=== PATIENT | female | born 1980 | race Caucasian/White ===

== ENCOUNTER 2024-05-24 04:14 | Emergency (ER) | payer BC, MEDICAID, MEDICARE ==
[2024-05-24 04:38] VITALS: O2SAT 99
--- NOTE | 2024-05-24 04:58 | ED Physician Documentation ---
PD HPI HEADACHE - Stated complaint Stated Complaint: HEADACHE/HIGH BP - Chief complaint Chief Complaint: Neuro - History obtained from History obtained from: Patient, Family (mother) - History of Present Illness Timing - onset: Enter time (299), Today Timing - onset during: Rest Timing - duration: Hours Timing - details: Abrupt onset, Still present Location: Front, Right Quality: Throbbing Associated symptoms: Nausea, Weakness (general). No: Fever, Stiff neck, Vomiting, Numbness, Syncope, Seizure, Eye pain, Vision changes Improved by: Rest, Quiet Worsened by: Light, Moving Contributing factors: Anticoagulated, Recent illness (PE and DVT 2 wk ago). No: Trauma Similar symptoms before: Diagnosis ([place] sinus) Recently seen: Emergency Dept, Admitted - Additional information Additional information: Joanna Rocha is a 44-year-old female who two weeks as ago developed pain in her left calf and when she went to be evaluated she was found to have pulmonary embolism and deep venous thrombosis. She was treated at [facility] and released. She apparently had elevated heart rate and was subsequently admitted to [facility] overnight. She is on Eliquis and has a history of Louie-Danlos syndrome. Review of Systems Constitutional: denies: Fever Eyes: denies: Decreased vision Ears: denies: Ear pain Nose: denies: Rhinorrhea / runny nose, Congestion, Foreign Body Throat: denies: Dental pain / toothache Cardiac: denies: Chest pain / pressure Respiratory: denies: Dyspnea, Cough GI: reports: Nausea. denies: Abdominal Pain, Vomiting, Constipation, Diarrhea : denies: Dysuria Skin: denies: Rash Musculoskeletal: denies: Neck pain, Back pain, Extremity pain PD PAST MEDICAL HISTORY - Past Medical History Past Medical History: Yes Cardiovascular: Deep vein thrombosis, Pulmonary embolism Other Past Medical History: Louie-Danlos Syndrome - Past Surgical History Past Surgical History: Yes - Present Medications Home Medications: Ambulatory Orders Medication Instructions Recorded Confirmed Duloxetine HCl [Cymbalta] 60 mg PO DAILY 06/19/14 06/19/14 Levonorgestrel-Ethin Estradiol 1 tab PO DAILY 06/19/14 06/19/14 [Levora-28] Meloxicam 15 mg PO DAILY 06/19/14 06/19/14 Oxycodone HCl 10 mg PO TID 06/19/14 06/19/14 atenoloL [Atenolol] 25 mg PO BID 06/19/14 06/19/14 buPROPion [Wellbutrin Sr] 150 mg PO BID 06/19/14 06/19/14 - Allergies Allergies/Adverse Reactions: Allergies Allergy/AdvReac Type Severity Reaction Status Date / Time moxifloxacin Allergy Rash Verified 05/24/24 04:38 - Social History Does the pt smoke?: No Smoking Status: Never smoker Does the pt drink ETOH?: No - Immunizations Immunizations are current?: Yes PD ED PE NORMAL - Vitals Vital signs reviewed: Yes (hypertensive systolic and diastolic) - General General: Alert and oriented X 3, Well developed/nourished, Other (44 y/o female clutching the right side of her head) - HEENT HEENT: Atraumatic, PERRL, EOMI - Neck Neck: Supple, no meningeal sign, No bony TTP - Cardiac Cardiac: No murmur, Other (tachy to 105) - Respiratory Respiratory: No respiratory distress, Clear bilaterally - Back Back: No CVA TTP, No spinal TTP - Derm Derm: Normal color, Warm and dry, No rash - Extremities Extremities: No deformity, No edema - Neuro Neuro: Alert and oriented X 3, refrigerator crater 2-12 intact, No motor deficit, No sensory deficit, Normal speech Eye Opening: Spontaneous Motor: Obeys Commands Verbal: Oriented GCS Score: 15 - Psych Psych: Normal mood, Normal affect Results - Vitals Vitals: Vital Signs - 24 hr 05/24/24 05/24/24 04:29 05:42 Temperature 36.6 C Heart Rate 100 92 Respiratory 18 18 Rate Blood Pressure 185/105 H 175/98 H O2 Saturation 99 99 Oxygen O2 Source Room air - Labs Labs: Laboratory Tests 05/24/24 05/24/24 05:03 05:03 WBC 8.4 RBC 4.37 Hgb 13.5 Hct 41.4 MCV 94.7 MCH 30.9 MCHC 32.6 RDW 13.2 Plt Count 229 MPV 10.8 Neut # (Auto) 5.5 Lymph # (Auto) 2.0 Faulk # (Auto) 0.6 Eos # (Auto) 0.2 Baso # (Auto) 0.1 Absolute Nucleated RBC 0.00 Nucleated RBC % 0.0 Sodium 139 Potassium 4.0 Chloride 107 Carbon Dioxide 24 Anion Gap 8.0 BUN 16 Creatinine 1.0 Estimated GFR (MDRD) 61 L Glucose 106 H Calcium 9.3 Total Bilirubin 0.3 AST 29 ALT 31 Alkaline Phosphatase 40 L Total Protein 6.7 Albumin 3.9 Globulin 2.8 Albumin/Globulin Ratio 1.4 Lipase 65 - Rads (name of study) CT head without Relevant Findings:: Prelim report reviewed (Impression: No acute intracranial findings.), EMP independent interpretation of test, See rad report PD Medical Decision Making - ED course Complexity details: reviewed results, re-evaluated patient, considered differential, d/w patient, d/w family Reviewed Lab Results: We reviewed a complete blood count showing a normal white blood cell count normal hemoglobin hematocrit and platelets chemistries were normal electrolytes normal kidney function normal liver function. These laboratory studies did not contribute to a specific diagnosis and are reassuring for a benign process. ED course: 44-year-old female awoke at 3:00 in the morning with a severe headache. She has some nausea associated with this and she was recently started some Eliquis. She comes to the emergency department today for evaluation. She does not have any nuchal rigidity she does have a headache and she is treated with a migraine cocktail consisting of dexamethasone Compazine Benadryl Toradol and a liter of saline. She is much better at the conclusion of treatment a CT scan of the head was obtained showing no evidence evidence of intracranial hemorrhage. She is signed out of the emergency department as a migraine headache. Departure - Departure Disposition: 01 Home, Self Care Clinical Impression: Migraine Qualifiers: Migraine type: unspecified Status migrainosus presence: without status migrainosus Intractability: not intractable Qualified Code(s): G43.909 - Migraine, unspecified, not intractable, without status migrainosus Condition: Stable Instructions: ED Headache Migraine Follow-Up: Your, doctor [Other] Comments: Ciarra, today it looks like the headache you presented to the emergency department with was a migraine. There is no evidence of bleeding inside the skull. Migraines will frequently happen under stressful conditions such as you have just experienced.Today you were given a migraine cocktail consisting of dexamethasone Compazine Benadryl Toradol and a liter of saline. This appears to have been effective. Forms: PCP List
[2024-05-24] MEDS: PROCHLORPERAZINE 10 MG/2 ML VIAL IVP STA (05:08)
[2024-05-24] MEDS: KETOROLAC 30 MG/ML VIAL IVP STA (05:08)
[2024-05-24] MEDS: DEXAMETHASONE 10 MG/ML VIAL IVP STA (05:08)
[2024-05-24] MEDS: SODIUM CHLORIDE 0.9% 1,000 ML IV STA (05:08)
[2024-05-24 05:09] LABS: BASOPHILS # (AUTO) 0.1 10^3/uL (0.0-0.1); BASOPHILS % (AUTO) 1.1 %; EOSINOPHILS # (AUTO) 0.2 10^3/uL (0.0-0.7); EOSINOPHILS % (AUTO) 1.8 %; HCT - HEMATOCRIT 41.4 % (37.0-47.0); HGB - HEMOGLOBIN 13.5 g/dL (12.0-16.0); LYMPHOCYTES % (AUTO) 24.2 %; MEAN CORPUSCULAR HEMOGLOBIN 30.9 pg (27.0-31.0); MEAN CORPUSCULAR HGB CONC 32.6 g/dL (32.0-36.0); MEAN CORPUSCULAR VOLUME 94.7 fL (81.0-99.0); MEAN PLATELET VOLUME 10.8 fL (7.9-10.8); MONOCYTES # (AUTO) 0.6 10^3/uL (0.0-1.0); MONOCYTES % (AUTO) 7.1 %; NEUTROPHILS # (AUTO) 5.5 10^3/uL (1.5-6.6); NEUTROPHILS % (AUTO) 65.3 %; PLT - PLATELET COUNT 229 10^3/uL (130-450); RED BLOOD COUNT 4.37 10^6/uL (4.20-5.40); RED CELL DISTRIBUTION WIDTH 13.2 % (12.0-15.0); WHITE BLOOD COUNT 8.4 x10^3/uL (4.8-10.8)
[2024-05-24] MEDS: diphenhydrAMINE INJ 50 MG/ML VIAL IVP STA (05:09)
[2024-05-24 05:27] LABS: ALBUMIN 3.9 g/dL (3.2-5.5); ALBUMIN/GLOBULIN RATIO 1.4 (1.0-2.2); BILIRUBIN,TOTAL 0.3 mg/dL (0.2-1.0); CALCIUM 9.3 mg/dL (8.5-10.3); TOTAL PROTEIN 6.7 g/dL (6.4-8.9)
--- NOTE | 2024-05-24 06:51 | CT Report ---
PROCEDURE: Head WO INDICATIONS: recent start of eliquis spontanseous severe alexandre TECHNIQUE: Noncontrast 4.5 mm thick angled axial sections acquired from the foramen magnum to the vertex. For r adiation dose reduction, the following was used: automated exposure control, adjustment of mA and/or kV according to patient size. COMPARISON: 06/20/2014 FINDINGS: Image quality: Diagnostic CSF spaces: Basal cisterns are patent. Lateral ventricles are symmetric. Volume: Generally maintained Brain: No intracranial hemorrhage. Veloz-white differentiation is grossly maintained. Possible small vascular calcifications Craniofacial structures: No displaced fracture. Sinuses are clear. Orbits are intact. IMPRESSION: No acute intracranial abnormality. Agree with preliminary report. Reviewed by: Perry Winchester MD on 05/24/2024 6:50 AM PDT Approved by: Perry Winchester MD on 05/24/2024 6:50 AM PDT Station ID: [id number]
[2024-05-24 07:02] VITALS: BP 117/88
== END 2024-05-24 06:49 | disposition home or self-care (01) ==
LOC: ED 04:14
DX: G43.909 Migraine, unspecified, not intractable, without status migrainosus (principal); Z79.01 Long term (current) use of anticoagulants
CPT/HCPCS: 36415; 70450; 80053; 83690; 85025; 96374; 96375; 99284; 99285; J1200